=== PATIENT | male | born 1995 | race Caucasian/White ===

== ENCOUNTER 2023-06-29 17:52 | Emergency (ER) | payer MEDICAID, SELFPAY ==
[2023-06-29 18:03] VITALS: BP 122/71; PULSE 78; RESP 20; TEMP 36.4; O2SAT 97; BMI 25.7
--- NOTE | 2023-06-29 18:08 | ED.GENADULT ---
HPI - General Adult General Chief complaint: General Medical Stated complaint: RT arm pain/nodule Time Seen by Provider: 06/29/23 21:54 Source: patient Mode of arrival: ambulatory Limitations: no limitations History of Present Illness HPI narrative: Patient with dysuria and hematuria. Patient denies discharge. There is some testicular swelling. Had a GC and chlamydia test 1 month ago which was negative Onset (ago): week(s) Severity: mild Related Data Allergies Allergy/AdvReac Type Severity Reaction Status Date / Time Unable to Assess Allergy Unverified 06/29/23 18:08 Review of Systems Review of Systems: Yes all other systems are reviewed and are negative Neurologic: Denies Sensory deficit (Neuro) [facility] Social History Social History Advance Directives: No Advance Directives Information Provided: No Physical Exam ED Vital Signs: Vital Signs - 24 hr 06/29/23 18:03 06/29/23 22:01 Temperature 97.5 F 98 F Pulse Rate 78 76 Respiratory Rate 20 20 Blood Pressure 122/71 124/72 Pulse Oximetry 97 98 Oxygen Delivery Method Room Air Room Air BMI result Body Mass Index 25.7 Const General: healthy appearing Nutritional Appearance: average body habitus Orientation/consciousness: oriented to person and patient oriented x3 Limitations: no limitations HENMT Head: Yes normal to inspection Ears: external ears normal General nose exam: Normal external nose present Mouth: Normal oral and palatal mucosa present and oropharynx normal Throat: Yes posterior oropharynx normal Eyes General: appearance normal, both eyes and all related structures Neck Neck: Yes normal visual inspection Chest Chest palpation & inspection: normal inspection of the chest Resp Auscultation: clear to auscultation bilaterally Cardio Jugular venous distension: no JVD Rate: regular rate Rhythm: regular rhythm Heart sounds: S1 normal heart sound present and S2 normal heart sound present GI Inspection: Yes normal to inspection Palpation (GI): Soft to palpation, nontender and No hepatosplenomegaly present Auscultation: normal bowel sounds Other: normal penis and testicles no discharge expressed General: Yes no CVA tenderness Back/Spine/Pelvis Back: no CVA tenderness Skin General skin exam: no rashes or lesions noted Neuro General: oriented to person and patient oriented x3 Cranial nerves: Yes CN's II-XII intact bilaterally Motor exam (neuro): 5/5 motor strength present throughout Sensory Exam: No Sensory deficit (Neuro) Extrem General: Yes normal to inspection Psych Appearance: grossly normal Course Course Course Narrative: This is an RME: Additional HPI, ROS, PE not included below will be deferred to primary provider. 27 year old male recently moved from [place] presents w/ intermittent dyuria looking for STD testing to insure he is in the clear , also reporting lump to r forearm. Plan- UA Reevaluation(s) Reevaluation #1: history and physical negative for urethritis or STD. Patient only has painful urinating when he has an erection. UA negative will not treat at this time Time: 22:06 Medical Decision Making Differential Diagnosis Differential Diagnoses: The differential diagnosis associated with the presentation includes (STD, urethritis, UTI were all considered) Lab Data MDM Lab Attestation statement: I reviewed the patient's lab results. (no blood or WBC in urine) Labs: Lab Results 06/29/23 Range/Units 18:23 Urine Color Yellow Urine Appearance Clear Urine pH 6.5 (5.0-9.0) Ur Specific [place] 1.025 (1.005-1.025) Urine Protein Negative (Neg-Trace) mg/dL Urine Glucose (UA) Negative (Negative) mg/dL Urine Ketones Negative (Negative) mg/dL Urine Blood Negative (Negative) Urine Nitrite Negative (Negative) Ur Leukocyte Esterase Negative (Negative) Tests considered The following testing was considered but not selected: CT scan considered but no physical evidence of pyelonephritis or renal colic Prescription Management I considered prescription management with: Antibiotic (considered but no evidence of infection) Discharge Plan Discharge Clinical Impression: Dysuria Patient Disposition: Home, Self-Care Instructions: Dysuria (ED) Referrals: Physician,Unknown J [Primary Care Provider] - 5 days
[2023-06-29 18:33] LABS: Appearance Urine Clear; Color Urine Yellow; Glucose Urine UA Negative (Negative); Leukocyte Esterase Urine Negative (Negative); Nitrite Urine Negative (Negative); PH 6.5 (5.0-9.0); Specific Gravity - Urine 1.025 (1.005-1.025); Urine Blood Negative (Negative); Urine Ketones Negative (Negative); Urine Protein Negative (Neg-Trace)
[2023-06-29 22:01] VITALS: BP 124/72; PULSE 76; RESP 20; TEMP 36.6; O2SAT 98
[2023-06-30 01:10] LABS: CT PCR NOT DETECTED (Not Detect.); NG PCR NOT DETECTED (Not Detect.)
== END 2023-06-29 22:13 | disposition home or self-care (01) ==
PROVIDERS: Physician Assistant; Emergency Provider Emergency Medicine
DX: R30.0 Dysuria (principal); R31.9 Hematuria, unspecified; N50.89 Other specified disorders of the male genital organs; M79.601 Pain in right arm; Z20.2 Contact with and (suspected) exposure to infections with a predominantly sexual mode of transmission
CPT/HCPCS: 0353U; 81003; 99283

== ENCOUNTER 2023-08-28 10:44 | Emergency (ER) | payer MEDICAID, SELFPAY ==
--- NOTE | 2023-08-28 11:16 | ED.GENADULT ---
HPI - General Adult General Chief complaint: Skin/Abscess/Foreign Body Stated complaint: broke out in a rash all over Time Seen by Provider: 08/28/23 11:34 Source: patient, RN notes reviewed and old records reviewed Mode of arrival: ambulatory History of Present Illness HPI narrative: 27-year-old male with no significant past medical history presenting to the ED complaining of sudden onset pruritic rash to right wrist extending up right upper extremity [employer] CLAIMS [employer] that self-resolved. Patient denies known new exposures or known allergens including new medications. Reports symptomatic improvement. Root admits at initial onset felt some chest tightness which has resolved. Denies throat closing sensation, SOB, difficulty breathing, recent travel. Admits called PCP you distract him to come to the ED Related Data Previous Rx's Medication Instructions Recorded cetirizine 10 mg chewable tablet 10 mg PO DAILY PRN allergy 08/28/23 (Children's Zyrtec Allergy) symptoms #14 tabs diphenhydramine HCl 25 mg capsule 25 mg PO TID PRN allergic reaction 08/28/23 (Benadryl) #14 caps Allergies Allergy/AdvReac Type Severity Reaction Status Date / Time No Known Allergies Allergy Verified 08/28/23 11:17 Review of Systems Review of Systems: Constitutional: No Fever, No Chills ENT/Mouth: No Ear Pain, No Nasal Congestion, No sore throat, No Rhinorrhea, No Swallowing Difficulty Cardiovascular: No Chest Pain, No SOB Respiratory: No Cough, No Sputum, No Wheezing Gastrointestinal: No Nausea, No Vomiting, No Diarrhea, No Constipation, No Abdominal pain Musculoskeletal: No joint pain, No Myalgias, No Joint Swelling Skin: No Skin Lesions, +rash Neuro: No Weakness Yes all other systems are reviewed and are negative Constitutional: Constitutional: Reports as per [facility] [place] Past Medical History Attestation statement: The following information was validated with the patient. Source: old records reviewed Social History Social History Smoked in Last 30 Days: No Use of substances other than those prescribed or required for medical reasons: No Advance Directives: No Advance Directives Information Provided: Yes Physical Exam ED Vital Signs: Vital Signs - 24 hr 08/28/23 11:19 Temperature 97.5 F Pulse Rate 101 H Respiratory Rate 14 Blood Pressure 115/77 Pulse Oximetry 99 Oxygen Delivery Method Room Air BMI result Body Mass Index 22.9 Const General: cooperative, healthy appearing and no acute distress Orientation/consciousness: patient oriented x3 Limitations: no limitations HENMT Head: Yes normal to inspection and Yes atraumatic Ears: hearing grossly normal bilaterally General nose exam: Normal external nose present Face and sinus: Yes normal facial exam Mouth: Normal oral and palatal mucosa present and no drooling Throat: Yes posterior oropharynx normal, Yes uvula midline, No peritonsillar mass, No uvula laterally displaced and No uvular edema Eyes General: appearance normal, both eyes and all related structures EOM: EOMs intact bilaterally Neck Neck: Yes normal visual inspection and Yes no meningeal signs Resp Effort & Inspection: normal respiratory effort, no respiratory distress and no stridor Auscultation: clear to auscultation bilaterally, no crackles, no rales, no rhonchi and no wheezes Cardio Rate: regular rate GI Inspection: Yes normal to inspection Palpation (GI): Soft to palpation, nontender, no guarding and not rigid Skin Other: + resolving papular/erythematous rash to right wrist noted. No mucous membrane, palm or sole involvement. No vesicles. No sloughing. Wounds: no wounds Neuro General: patient oriented x3, tone normal and no meningeal signs Cranial nerves: Yes CN's II-XII intact bilaterally Gait exam (Neuro): Normal gait present Extrem General: Yes normal to inspection Course Course Course Narrative: RME:?27 yo male w/ no known allergies here with itchy rash beginning just [employer] CLAIMS [employer]ER. Was sitting at computer when he felt his right wrist itch, looked down and saw a rash to his entire right upper extremity, now almost completely resolved. Did not take any medication [employer] CLAIMS AD[employer]ER. No new detergents/soaps/lotions/medications. Called PCP who advised to come to ED. denies rash anywhere else. +lungs cta b/l. no acute distress. Full HPI, ROS and PE to be performed by the primary ED provider. Medical Decision Making Medical Decision Making MDM Narrative: 27-year-old male with no significant past medical history presenting to the ED complaining of sudden onset pruritic rash to right wrist extending up right upper extremity [employer]S [employer] that self-resolved. On exam mildly tachycardic, NAD, nontoxic appearing, physical exam as noted above. Concern for allergic reaction versus contact dermatitis. No evidence of anaphylaxis. Docking complete sentences, no respiratory compromise. 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 Results discussed with patient including worrisome signs and symptoms and strict return precautions, and when to return to the emergency department. They verbalized understanding and feel safe for discharge at this time. Differential Diagnosis Differential Diagnoses: The differential diagnosis associated with the presentation includes As above External Record Review External record reviewed: Inpatient record, Office record, Outpatient record, Prior outpatient labs, Prior outpatient radiology, Primary care record and Outside ED record Tests considered The following testing was considered but not selected: As above Discharge Plan Discharge Clinical Impression: Allergic reaction Patient Disposition: Home, Self-Care Instructions: General Allergic Reaction (ED), Allergy Testing (ED) Additional Instructions: We suspect you had an allergic reaction. Take Benadryl as needed, this will make you drowsy Take Zyrtec or Claritin in the morning If you develop persistent/worsening symptoms, shortness of breath, chest tightness, difficulty breathing or speaking return to the ED immediately Prescriptions: New diphenhydramine HCl [Benadryl] 25 mg capsule 25 mg PO TID PRN (Reason: allergic reaction) Qty: 14 0RF cetirizine [Children's Zyrtec Allergy] 10 mg tablet,chewable 10 mg PO DAILY PRN (Reason: allergy symptoms) Qty: 14 0RF Referrals: Edwar Pa MD [Physician] - Armen Nath DO [Physician] - Janet Carmen MD [Physician] - John Bailey PA-C [Physician Pad Tufter] - Physician,Malachi J [Primary Care Provider] - 5 days Interventions: ED Discharge Assessment Last Done: 08/28/23 12:14 Discharge Date/Time: 08/28/23 12:14
[2023-08-28 11:19] VITALS: BP 115/77; PULSE 101; RESP 14; TEMP 36.4; O2SAT 99; BMI 22.9
== END 2023-08-28 12:14 | disposition home or self-care (01) ==
PROVIDERS: Emergency Provider Emergency Medicine
DX: L50.0 Allergic urticaria (principal)
CPT/HCPCS: 99283; 99284